=== PATIENT | male | born 1955 | race Caucasian/White ===

== ENCOUNTER 2016-11-14 22:27 | Emergency (ER) | payer OTHER ==
[~2016-11-14] VITALS: Ht 175.3 cm; Wt 113.0 kg
[~2016-11-14 22:27] MED LIST: AMOX-363 PO; CHOL100045 PO; CYAN500 PO; ENOX40DI8 SUBQ; FERR-74 PO; HYDR2TAB27 PO; HYG25 PO; LACT1CAP37 PO; LOSA50TA37 PO; OXYC5TAB72 PO
[2016-11-14 22:32] VITALS: BP 163/90; PULSE 116; RESP 20; O2SAT 96
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
[2016-11-15 01:25] VITALS: BP 135/81; PULSE 107; RESP 16; O2SAT 99
[2016-11-15] MEDS ORDERED: Lidocaine-Epi-Tetracaine Solution 3 mL Syringe TOPICAL ONE (01:25)
[2016-11-15 02:18] LABS: BASOPHILS % (AUTO) 0.2 % (0-3); EOSINOPHILS % (AUTO) 0.2 % (0-5); MONOCYTES % (AUTO) 10.3 % (4-12); Mean Corpuscular Hemoglobin 33.9 pg (27.0-35.0); Mean Corpuscular Volume 97.2 fL (81-100); NEUTROPHILS % (AUTO) 76.9 % (40-74); Platelet Count 187 bil/L (150-400)
[2016-11-15 02:35] LABS: INR 0.91 ratio
[2016-11-15 02:39] LABS: Magnesium 1.8 mg/dL (1.6-2.6)
[2016-11-15] MEDS ORDERED: CeFAZolin 2 Gm/50 mL D5W Duplex Bag IV ONE (02:40)
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
== END 2016-11-15 03:10 | disposition short-term general hospital (02) ==
LOC: EDUNIT# 22:27 → EDBD 22:27 → SED 22:37
DX: S02.31XA Fracture of orbital floor, right side, initial encounter for closed fracture (principal); S02.2XXA Fracture of nasal bones, initial encounter for closed fracture; K08.11 Complete loss of teeth due to trauma; H11.31 Conjunctival hemorrhage, right eye; Y04.0XXA Assault by unarmed brawl or fight, initial encounter; Y92.009 Unspecified place in unspecified non-institutional (private) residence as the place of occurrence of the external cause; Y93.89 Activity, other specified; Y99.8 Other external cause status; I10 Essential (primary) hypertension; Z87.891 Personal history of nicotine dependence
CPT/HCPCS: 36415; 70450; 70486; 80053; 83690; 83735; 85025; 85610; 99285; G0480